=== PATIENT | male | born 1985 | race Caucasian/White ===

== ENCOUNTER 2018-06-06 22:00 | Emergency (ER) | payer OTHER ==
[2018-06-06] MEDS ORDERED: DIAZEPAM 5 MG PREPACK#4 BTL TAKEHOME ONE (22:28)
--- NOTE | 2018-06-06 22:32 | EDPHY ---
H & P Stated Complaint: Back Injury Time Seen by Provider: 06/06/18 22:23 HPI/ROS: CHIEF COMPLAINT: Left lower back/gluteal pain HISTORY OF PRESENT ILLNESS: Patient is a 33-year-old man who was working with [employer] and [place] a heavy bag [place] the river. As he threw it he noticed some strain to his left lower back/gluteal region. Later he was catching a similar bag that was thrown over his head and has he jumped up noticed an increase in pain in his left lower back area. He did not fall. No recent significant trauma. No fever. No bowel or bladder abnormalities. No weakness numbness or paralysis. No saddle anesthesia. Pain does not radiate down his leg. It does not radiate to his abdomen or testicles. His symptoms are worsened by movement and improve at rest. This happened on Monday and it is become gradually more stiff and painful. Severity: Severe Modifying factors: Movement REVIEW OF SYSTEMS: Constitutional: denies: chills, fever, recent illness, recent injury EENTM: denies: blurred vision, double vision, nose congestion Respiratory: denies: cough, shortness of breath Cardiac: denies: chest pain, irregular heart rate, lightheadedness, palpitations Gastrointestinal/Abdominal: denies: abdominal pain, diarrhea, nausea, vomiting, blood streaked stools Genitourinary: denies: dysuria, frequency, hematuria, pain Musculoskeletal: See HPI Skin: denies: lesions, rash, jaundice, bruising Neurological: denies: headache, numbness, paresthesia, tingling, dizziness, weakness Hematologic/Lymphatic: denies: blood clots, easy bleeding, easy bruising Immunologic/allergic: denies: HIV/AIDS, transplant 10 systems reviewed and negative except as noted EXAM: GENERAL: Well-appearing, well-nourished and in no acute distress. HEAD: Atraumatic, normocephalic. EYES: Pupils equal round and reactive to light, extraocular movements intact, sclera anicteric, conjunctiva are normal. ENT: TMs normal, nares patent, oropharynx clear without exudates. Moist mucous membranes. NECK: Normal range of motion, supple without lymphadenopathy or JVD. LUNGS: Breath sounds clear to auscultation bilaterally and equal. No wheezes rales or rhonchi. HEART: Regular rate and rhythm without murmurs, rubs or gallops. ABDOMEN: Soft, nontender, normoactive bowel sounds. No guarding, no rebound. No masses appreciated. BACK: Left lower back/up gluteal pain. Improves with massage. No bony tenderness. No radiation. No obvious deformities or swelling or erythema or warmth. EXTREMITIES: Normal range of motion, no pitting or edema. No clubbing or cyanosis. NEUROLOGICAL: Cranial nerves II through XII grossly intact. Normal speech, normal gait. 5/5 strength, normal movement in all extremities, normal sensation , normal reflexes PSYCH: Normal mood, normal affect. SKIN: Warm, dry, normal turgor, no visible rashes or lesions. Source: Patient Exam Limitations: No limitations - Personal History Current Tetanus/Diphtheria Vaccine: Yes Current Tetanus Diphtheria and Acellular Pertussis (TDAP): Yes - Medical/Surgical History Hx Asthma: No Hx Chronic Respiratory Disease: No Hx Diabetes: No Hx Cardiac Disease: No Hx Renal Disease: No Hx Cirrhosis: No Hx Alcoholism: No Hx HIV/AIDS: No Hx Splenectomy or Spleen Trauma: No - Family History Significant Family History: No pertinent family hx - Social History Smoking Status: Never smoked Alcohol Use: None Constitutional: Initial Vital Signs Temperature (C) 37.2 C 06/06/18 22:02 Heart Rate 80 06/06/18 22:02 Respiratory Rate 18 06/06/18 22:02 Blood Pressure 105/78 06/06/18 22:02 O2 Sat (%) 98 06/06/18 22:02 O2 Delivery Mode Room Air Allergies/Adverse Reactions: No Known Allergies Allergy (Unverified 06/06/18 22:01) Home Medications: Medication Instructions Recorded Diazepam [Valium 5 MG (*)] 5 mg PO TID PRN #10 tab 06/06/18 Medical Decision Making - Diagnostics Imaging: Discussed imaging studies w/ bilingual call center representative Radiologist ED Course/Re-evaluation: Patient's symptoms are consistent with musculoskeletal pain. Doubt cauda equina or spinal cord type injury. Doubt infection. Will treat with muscle 11:05 p.m. the patient's x-rays reassuring. He is moving comfortably and is able to ambulate without difficulty. Will treat with muscle relaxants and he has follow-up appointment planned with sports medicine on Monday. Discussed symptoms to watch for and indications for returning. Differential Diagnosis: Partial list of the Differential diagnosis considered include but were not limited to; low back pain, muscle strain, radiculopathy and although unlikely based on the history and physical exam, I also considered cord compression, infection, fracture. I discussed these differential diagnoses and the plan with the patient as well as the usual and expected course. The patient understands that the diagnosis is provisional and that in medicine we are not always correct and that further workup is often warranted. Usual and customary warnings were given. All of the patient's questions were answered. The patient was instructed to return to the emergency department should the symptoms at all worsen or return, otherwise to followup with the physician as we discussed. - Data Points Medications Given: Discontinued Medications Diazepam (Valium 5 Mg Prepack#4) [facility] Stop: 06/06/18 22:29 Last Admin: 06/06/18 23:12 Dose: 1 btl Departure - Departure Disposition: Home, Routine, Self-Care Clinical Impression: Low back strain Qualifiers: Encounter type: initial encounter Qualified Code(s): S39.012A - Strain of muscle, fascia and tendon of lower back, initial encounter Condition: Fair Instructions: Diazepam (By mouth), Low Back Strain (ED) Referrals: NONE *PRIMARY CARE P,. [Primary Care Provider] - As per Instructions [facility] [Provider Group] - 3-4 days, if not improved (Follow-up on Monday as planned) Prescriptions: Diazepam [Valium 5 MG (*)] 5 mg PO TID PRN #10 tab PRN Reason: Spasms
[2018-06-06 23:29] VITALS: BP 103/68
== END 2018-06-06 23:28 | disposition home or self-care (01) ==
DX: S39.012A Strain of muscle, fascia and tendon of lower back, initial encounter (principal); X50.0XXA Overexertion from strenuous movement or load, initial encounter; Y93.F2 Activity, caregiving, lifting; Y99.0 Civilian activity done for income or pay